=== PATIENT | male | born 1995 | race Caucasian/White ===

== ENCOUNTER 2018-08-21 18:36 | Emergency (ER) | payer OTHER ==
[~2018-08-21 18:36] MED LIST: CETI-169 PO; FLUO-202 PO; HYDR-4228 PO; ISOM1CAP2 PO; LACT1CAP6 PO; LANS30CA63 PO; LEVO50TA86 PO; ONDA4TAB PO; VERA120T14 PO
--- NOTE | 2018-08-21 18:39 | ER Report ---
History and Physical Time Seen By MD: 18:38 HPI/ROS CHIEF COMPLAINT: Left index finger injury HISTORY OF PRESENT ILLNESS: 23-year-old male who was chopping estr[place] with a knife when he sustained injury to his left index finger. He somehow managed to avulse the lateral half of the nail off the bed. There is a tiny laceration on the radial edge of the nail. It does not gap open. It does not appear to need sutures. Patient's last tetanus shot is proximal to 10 years ago. He'll be updated on his status of his tetanus shot Allergies: Coded Allergies: peanut (Verified Allergy, Intermediate, ANAPHYLAXIS, 08/07/14) Home Meds Reported Medications Fluoxetine Hcl (PROZAC) 20 Mg Capsule, 20 MG PO QDAY, CAPSULE 08/07/14 Lansoprazole (LANSOPRAZOLE) 30 Mg Capsule.dr, 30 MG PO BID 08/07/14 Discontinued Reported Medications Verapamil Hcl (VERAPAMIL ER) 120 Mg Tablet.er, 240 MG PO DAILY 08/07/14 Hydroxyzine Hcl (HYDROXYZINE HCL) 50 Mg Tablet, 50 MG PO HS PRN for SLEEP 08/07/14 Levothyroxine Sodium (LEVOTHYROXINE SODIUM) 50 Mcg Tablet, 50 MCG PO QDAY 08/07/14 Ondansetron (ZOFRAN ODT) 4 Mg Tab.rapdis, 4 MG PO Q6H PRN for NAUSEA 08/07/14 Cetirizine Hcl (CETIRIZINE HCL) 10 Mg Tablet, 10 MG PO QDAY PRN for ALLERGY SYMPTOMS, TAB TAKE 1 TABLET DAILY. 08/07/14 Lactobacillus Combination No.4 (PROBIOTIC) 1 Each Capsule, 1 EACH PO DAILY, CAPSULE 08/07/14 Isomethept/Acetaminop/Dichlphn (OUELAGQNZS-NWYYWOMJLP-DULOSWEJ) 1 Each Capsule, 1 EACH PO Q4D PRN for PAIN, CAPSULE 08/07/14 Reviewed Nurses Notes: Yes Old Medical Records Reviewed: Yes Hx Smoking: Yes Smoking Status: Current: Every Day Smoker Constitutional Vital Sign - Last 24 Hours 08/21/18 18:47 Temp 98.2 Pulse 100 Resp 18 B/P (MAP) 147/98 Pulse Ox 99 O2 Delivery Room Air Physical Exam General appearance: Alert no distress. Respiratory: Chest is non tender, lungs are clear to auscultation. Cardiac: Regular rate and rhythm Extremities: Examination of left hand reveals a superficial avulsion of the lateral aspect of the left index fingernail. There is also a superficial 3 mm cut to the radial aspect of the cuticle adjacent to the margin of the nail. DIFFERENTIAL DIAGNOSIS: After history and physical exam differential diagnosis was considered for skin avulsion, nail avulsion, laceration, crush injury Medical Decision Making ED Course/Re-evaluation ED Course Patient was admitted to an examination room. H&P was done. The differential diagnoses was considered. On clinical examination. Patient has injury to his left index finger from a knife when he was chopping estr[place]. He removed half of the nail down to the nail bed without laceration of the nailbed. There is a tiny laceration along the radial aspect of the nail that does not require sutures. Patient's advised wound care. Decision to Disposition Date: Aug 21, 2018 Decision to Disposition Time: 19:01 Depart Departure Latest Vital Signs Vital Signs Date Time Temp Pulse Resp B/P (MAP) Pulse Ox O2 Delivery O2 Flow Rate FiO2 08/21/18 18:47 98.2 100 18 147/98 99 Room Air Impression: Primary Impression: Avulsion of fingernail of left hand Condition: Improved Disposition: HOME OR SELF-CARE Patient Instructions: Acute Wound Care (ED) Additional Instructions: Keep the affected area covered with a thin layer of anabolic ointment and a Band-Aid. Keep clean and dry. Cleanse once daily with a mild soap such as baby shampoo and replace the dressing. Wear gloves at work to protect the area. Follow-up with primary care if unimproved in 3-5 days. KRYSTAL ROBLES DO Aug 21, 2018 18:39
[2018-08-21 18:47] VITALS: BP 147/98
[2018-08-21] MEDS ORDERED: DIPHTH/TETANUS/ACEL. PERTUSSIS IM ONLY ONE (18:55)
== END 2018-08-21 19:23 | disposition home or self-care (01) ==
LOC: ER 18:42
DX: S61.311A Laceration without foreign body of left index finger with damage to nail, initial encounter (principal)
CPT/HCPCS: 90471; 90715; 99283

== ENCOUNTER 2019-04-03 03:41 | Emergency (ER) | payer OTHER ==
[~2019-04-03 03:41] MED LIST changes: -VERA120T14 PO; +VERA120T76 PO
[2019-04-03 03:44] VITALS: BP 129/71
--- NOTE | 2019-04-03 03:57 | ER Report ---
History and Physical Time Seen By MD: 03:50 Hx. of Stated Complaint: PT REPORTS FALLING AND HITTING NOSE. PT WORRIED ABOUT CROOKED NOSE. HPI/ROS CHIEF COMPLAINT: Nose injury HISTORY OF PRESENT ILLNESS: This is a 24-year-old male. He fell tonight and landed hitting the bridge of his nose on the stair. Has some swelling and pain. Holmes a crack and was worried about a broken nose. Has a little bit of a nosebleed. No headache. No neck pain. No other facial pain or jaw pain. Normal vision. Denies loss of consciousness. Has had a few drinks earlier tonight, but not intoxicated Allergies: Coded Allergies: peanut (Verified Allergy, Intermediate, ANAPHYLAXIS, 04/03/19) Home Meds Reported Medications Fluoxetine Hcl (PROZAC) 20 Mg Capsule, 20 MG PO QDAY, CAPSULE 08/07/14 Lansoprazole (LANSOPRAZOLE) 30 Mg Capsule.dr, 30 MG PO BID 08/07/14 Reviewed Nurses Notes: Yes Hx Smoking: Yes Smoking Status: Current: Every Day Smoker Constitutional Vital Sign - Last 24 Hours 04/03/19 03:44 Temp 97.9 Pulse 116 Resp 14 B/P (MAP) 129/71 Pulse Ox 93 O2 Delivery Room Air Physical Exam Gen.: Alert, no acute distress Eyes: Pupils equal, round, reactive to light, extraocular movements intact. Normal conjunctiva and sclera. ENT: Pain at the bridge of the nose with associated swelling but I do not see that this appears crooked. Normal-appearing nasal septum without acute bleeding. No pain over the rest of the facial structures including the orbital rims and the zygoma. No pain in the jaw up Neck: Supple, no pain with palpation anterior or posterior of the neck. Neuro: Alert and oriented 4. No focal neurologic deficits in the cranial nerves with eye exam as noted above. No deficits in the extremities. Medical Decision Making ED Course/Re-evaluation ED Course Discussed with the patient options. Discussed doing a facial bone CT scan which would be the best to detect nasal fractures. Also suggested we could do regular x-rays which are not as good at detecting nasal fractures but are cheaper and would be a reasonable alternative. Also discussed just watching for now as I do not see any major problems there, waiting for swelling to go down and see how things look. A mild fracture may not need to be repaired but follow up with her nose and throat would be what we did recommend if there was a fracture present. After discussing this he would like to just wait for swelling to go down and follow-up with your nose and throat as needed. Decision to Disposition Date: April 03, 2019 Decision to Disposition Time: 03:55 Depart Departure Latest Vital Signs Vital Signs Date Time Temp Pulse Resp B/P (MAP) Pulse Ox O2 Delivery O2 Flow Rate FiO2 04/03/19 03:44 97.9 116 14 129/71 93 Room Air Impression: Primary Impression: Nasal contusion Condition: Improved Disposition: HOME OR SELF-CARE Referrals: ROBERT TAMAYO JR, MD Patient Instructions: Nasal Contusion (ED), Nasal Fracture (ED) Additional Instructions: You injured your nose. There is some swelling, but otherwise looks okay. The only way to tell if there is a fracture is to do x-rays or CT scans. You can always change your mind and return for imaging, or can follow-up with ENT, Dr. Tamayo as we discussed. You can use Tylenol or Ibuprofen as needed for pain. Using and ice pack can help reduce swelling. Problem Qualifiers Primary Impression: Nasal contusion Encounter type: initial encounter Qualified Codes: S00.33XA - Contusion of nose, initial encounter ONESIMO SPAIN MD April 03, 2019 03:57
== END 2019-04-03 04:02 | disposition home or self-care (01) ==
LOC: ER 03:51
DX: S00.33XA Contusion of nose, initial encounter (principal); W01.198A Fall on same level from slipping, tripping and stumbling with subsequent striking against other object, initial encounter
CPT/HCPCS: 99281